=== PATIENT | male | born 1990 | race Caucasian/White ===

== ENCOUNTER 2018-12-21 21:54 | Emergency (ER) | payer MEDICAID, OTHER ==
[~2018-12-21 21:54] MED LIST: NO HOME MEDICATIONS
== END 2018-12-22 03:49 | disposition left against medical advice (07) ==
LOC: ER 21:54
DX: R46.89 Other symptoms and signs involving appearance and behavior (principal); Z53.21 Procedure and treatment not carried out due to patient leaving prior to being seen by health care provider

== ENCOUNTER 2018-12-22 12:49 | Emergency (ER) | payer MEDICAID, OTHER ==
[~2018-12-22] VITALS: Ht 170.2 cm; Wt 99.0 kg
[2018-12-22] MEDS ORDERED: IBUPROFEN 800MG TABLET PO ONE (14:00)
[2018-12-22 14:16] VITALS: BP 158/88
== END 2018-12-22 14:17 | disposition home or self-care (01) ==
LOC: ER 12:49
DX: R07.9 Chest pain, unspecified (principal); R05 Cough; F12.10 Cannabis abuse, uncomplicated
CPT/HCPCS: 36415; 71045; 84484; 93005; 99284

== ENCOUNTER 2022-11-10 13:44 | Emergency (ER) | payer MEDICAID ==
[~2022-11-10] VITALS: Ht 170.2 cm; Wt 110.0 kg
[2022-11-10 13:52] VITALS: BP 144/97
[2022-11-10] MEDS ORDERED: ACETAMINOPHEN 325MG TABLET PO SCH (14:15)
[2022-11-10] MEDS ORDERED: LIDOCAINE 5% PATCH TOP SCH (14:15)
[2022-11-10] MEDS ORDERED: ACETAMINOPHEN 325MG TABLET PO ONE (14:15)
[2022-11-10] MEDS ORDERED: T3 PO (15:29)
[2022-11-10] MEDS ORDERED: LIDO700A15 TP (15:29)
[2022-11-10] MEDS ORDERED: IBUP-2029 MT (15:29)
== END 2022-11-10 16:06 ==
LOC: ER 13:48
DX: S22.31XA Fracture of one rib, right side, initial encounter for closed fracture (principal); W22.8XXA Striking against or struck by other objects, initial encounter; Y93.89 Activity, other specified; Y92.89 Other specified places as the place of occurrence of the external cause; Y99.8 Other external cause status; F41.9 Anxiety disorder, unspecified; E78.00 Pure hypercholesterolemia, unspecified; F12.10 Cannabis abuse, uncomplicated; Z79.899 Other long term (current) drug therapy
CPT/HCPCS: 71101; 99284